=== PATIENT | female | born 1965 ===

== ENCOUNTER 2019-12-27 02:18 | Inpatient (IN) | payer OTHER ==
[2019-12-27] MEDS ORDERED: MORPHINE 4 MG/ML SYR IV PRN (02:46)
[2019-12-27 03:56] VITALS: BMI 23.8
[2019-12-27] MEDS: NS KCL 20MEQ 20 MEQ/1,000 ML BAG IV SCH ×4 (04:13→23:06)
[2019-12-27] MEDS ORDERED: PIPER/TAZO/NS 3.375gm 3.375 GM/100 ML BAG ONE (05:25)
[2019-12-27] MEDS: ONDANSETRON 4 MG/2 ML VIAL IV PRN (05:59)
[2019-12-27] MEDS: PIPER/TAZO/NS 3.375gm 3.375 GM/100 ML BAG IVPB SCH ×4 (06:04→23:06)
[2019-12-27] MEDS ORDERED: NA CHLORIDE 0.9% 1,000 ML ONE (06:09)
[2019-12-27] MEDS: FAMOTIDINE 20 MG/2 ML VIAL IV SCH (08:00)
--- NOTE | 2019-12-27 09:36 | RAD REPORT ---
EXAM DESCRIPTION: US - Abdomen Exam Limited - 12/27/2019 9:28 am CLINICAL HISTORY: Abdominal pain. COMPARISON: None. FINDINGS: The gallbladder wall is borderline thickened. . A gallstone is not seen. The biliary tree is normal caliber. IMPRESSION: Borderline thickening of the gallbladder wall. A gallstone is not visualized
[2019-12-27] MEDS: ACETAMINOPHEN 500 MG TAB PO PRN ×2 (12:39→21:05)
[2019-12-27] MEDS ORDERED: ACETAMINOPHEN 500 MG TAB ONE (12:49)
[2019-12-27 13:49] LABS: Absolute Lymphocytes (CBC) 0.8 K/uL (0.7-4.9); Basophils % 0.5 % (0-1.3); Hematocrit 31.6 % (36.0-45.0); Lymphocytes % 7.4 % (15.3-44.8); MPV 7.7 fL (7.6-11.3); RBC Red Blood Cell Count 3.43 M/uL (3.86-4.86)
--- NOTE | 2019-12-27 13:54 | P.HP ---
Date of Service: 12/27/19 PC: This patient was transferred to our facility with a presumptive diagnosis of acute cholecystitis with cholelithiasis. HPC: The she presented to a local emergency room. Patient was complaining of abdominal pain. Apparently also had some lower backache and just felt on well a few days prior. PSHx: NAD SOC: Allergic to Macrobid SYS REVIEW: No cough, no wheeze or shortness of breath. Did have some diarrhea throughout the week. Denies any urinary complaints. Has also had a headache as well. O/E awake alert vital signs are stable, T-max 103 HEENT: Not jaundice Chest: Chest movement equal bilaterally ABD: Minimal right upper quadrant tenderness LOCO: Intact DATA: Did have elevated liver enzymes and LP stays as well as gamma GT. Abdominal CT scan shows some ascitic fluid. No free air was noted. Ultrasound today shows some gallbladder wall thickening but no stones are seen. IMPRESSION: Initially this patient was thought to have acute cholecystitis with cholelithiasis. However she has some other symptoms that could be consistent with covid. Patient is on IV and pain medicine. Will give her regular diet, make her NPO at midnight, and re-evaluate in the a.m. PLAN: Transferred to the covid floor. Consult hospitalist.
[2019-12-27 14:08] LABS: ALT/SGPT 92 U/L (12-78); AST/SGOT 35 U/L (15-37); Albumin 2.6 g/dL (3.4-5.0); Alkaline Phosphatase 160 U/L (45-117); BUN Blood Urea Nitrogen 8 mg/dL (7-18); Bicarbonate 26 mmol/L (21-32); Bilirubin Total 0.5 mg/dL (0.2-1.0); Ferritin 295.5 ng/mL (8-388); Glucose Level 108 mg/dL (74-106); Potassium 3.6 mmol/L (3.5-5.1); Sodium Level 138 mmol/L (136-145)
--- NOTE | 2019-12-27 14:12 | RAD REPORT ---
EXAM DESCRIPTION: Nomi Single View12/27/2019 1:59 pm CLINICAL HISTORY: fever COMPARISON: none FINDINGS: Lung bases are mildly hazy The heart is normal size IMPRESSION: Lung bases are mildly hazy which may indicate pneumonia
[2019-12-27 14:44] LABS: Blood Morphology Comment NOT SEEN (NOT SEEN); Platelet Estimate ADEQ; Urine White Blood Cell Casts OK
[2019-12-27] MEDS ORDERED: ALBUTEROL INHALER 60 PUFF/8 GM IH PRN (14:59)
--- NOTE | 2019-12-27 15:01 | P.CNS ---
Date of Consult: 12/27/19 Reason for Consult: SOB Requesting Physician: Taj Isaac Chief Complaint: Acute cholecystitis History of Present Illness: 54-year-old female with a past medical history of smoking cigarettes x1 pack per day for greater than 30 years, depression and cardiomyopathy 13 years ago after the of her twins presented to the out test ER with complaints of abdominal pain. Described it as "pain" in the right upper quadrant. No radiation. Described the pain between a 7 and 8/10. Patient was sent to [facility] with concerns for acute cholecystitis with cholelithiasis. CT abdomen pelvis year showed some mild ascitic fluid. Ultrasound showed a gallbladder wall thickening but no stones or sludge. Patient was started on IV Zosyn. Per surgery-Dr. Javed. Initially this patient was thought to have acute cholecystitis with cholelithiasis. However she has some other symptoms that could be consistent with covid. Patient is on IV antibiotic and pain medicine. Will give her regular diet, make her NPO at midnight, and re-evaluate in the a.m. On examination patient is eating a regular diet. She is not wearing her oxygen despite having room air saturations of 86%. Patient is requiring between 2-4 L nasal cannula to maintain oxygen saturations greater than 93%. States that she just got back from the bathroom and was eating her food before putting the oxygen back on. Was just informed that the patient is call the test is negative. Allergies macrobid Allergy (Severe, Uncoded 12/27/19 03:43) Itching/Hives/Rash Home Medications: Ciprofloxacin HCl [Cipro 500 MG Tablet] 1 tab PO BID 12/27/19 Escitalopram Oxalate [Lexapro] 1 tab PO DAILY 12/27/19 Montelukast [Singulair*] 1 tab PO DAILY 12/27/19 - Past Medical/Surgical History Diabetic: No -: smoker -: cardiomyopathy 13 years ago after delivery -: depression -: allergic rhinitis -: menopausal symptom -: 2x CS -: right thumb surgery -: left eye mesh plate placement -: toe surgery on johnnie feet -: partial hysterectomy Psychosocial/ Personal History: Lives at home - Family History Sister Medical History: Cancer Notes: breast - Social History Smoking Status: Current every day smoker Alcohol use: Yes CD- Drugs: No Caffeine use: No Place of Residence: Home Review of Systems General: Other (Headache), As per HPI Eyes: Unremarkable ENT: Unremarkable Respiratory: Shortness of Breath, As per HPI Cardiovascular: Unremarkable Gastrointestinal: Abdominal Pain, No Distention Genitourinary: Unremarkable Musculoskeletal: Unremarkable Integumentary: Unremarkable Neurological: Unremarkable Lymphatics: Unremarkable Physical Examination Temp Pulse Resp BP Pulse Ox 98.8 F 96 H 20 115/62 92 12/27/19 13:39 12/27/19 11:28 12/27/19 11:28 12/27/19 11:28 12/27/19 11:28 General: Alert, In no apparent distress, Oriented x3 HEENT: Atraumatic, Normocephalic, PERRLA, Mucous membr. moist/pink Neck: Supple, No Thyromegaly, Other (Trachea midline) Respiratory: Clear to auscultation bilaterally, Diminished Cardiovascular: No edema, Normal pulses, Normal S1 S2 Capillary refill: <2 Seconds Gastrointestinal: Normal bowel sounds, Soft and benign, Non-distended, [place] (Epigastric - mild pain with palpation) Musculoskeletal: No swelling, No contractures, No erythema Integumentary: No breakdown, No significant lesion, No tenderness/swelling Neurological: Normal gait, Normal speech, Normal strength at 5/5 x4 extr, Normal tone Laboratory Data (last 24 hrs) 12/27/19 13:14: Sodium 138, Potassium 3.6, BUN 8, Creatinine 0.54 L, Glucose 108 H, Total Bilirubin 0.5, AST 35, ALT 92 H, Alkaline Phosphatase 160 H 12/27/19 13:14: WBC 10.4, Hgb 10.5 L, Hct 31.6 L, Plt Count 276 Conclusions/Impression: Impression: Acute cholecystitis with cholelithiasis: Shortness of breath: Likely undiagnosed COPD: Nicotine abuse: History of cardiomyopathy after the of twins 13 years ago: Large ovarian cyst: Plan: Acute cholecystitis with cholelithiasis: Managed by surgery. Less likely acute cholecystitis. Surgery started patient on p.o. diet, NPO after midnight and Re evaluation in the morning. Shortness of breath: Etiology unclear but likely a COPD exacerbation. Patient does have a history of cigarette smoking of 1 pack per day for greater than 30 years. This could be underlying undiagnosed COPD. Patient does not use home oxygen at this time. She does not take inhalers. Due to her history of smoking will order a CT to rule out PE. Was just informed that her COVID test was negative. Patient's CRP is elevated at 97.3. Will start patient on inhaler Dulera and albuterol, will statrt prednisone 20 mg b.i.d. and O2 support. Currently she is 86% on room air and was having a difficult time maintaining oxy gen saturations above 93% at 4 L nasal cannula. Patient states she was doing fine yesterday. States that at rest she does okay with exertion she feels like she can't catch her breath. Due to the possibility of surgery tomorrow will hold off on anticoagulation until we get results of CT and a D-dimer. Will also screen for flu, strep due to fever. Likely undiagnosed COPD: Will further evaluate as above. Will continue O2 support and breathing treatments as needed. Nicotine abuse: 1 pack-a-day smoker of cigarettes for greater than 30 years. Offered nicotine patch but refused. Will offer again tomorrow History of cardiomyopathy after the of twins 13 years ago: Will further workup patient with an echocardiogram due to her history of cardiomyopathy 13 years ago after the of her twins and possibly undiagnosed COPD from many years of smoking. Will also start on prednisone 20 mg b.i.d., Dulera and albuterol inhalers for possible underlying COPD. Prior to arriving to the hospital patient had an EKG which showed normal sinus rhythm at a rate of 65. No acute pathology. Large ovarian cyst: CT showed an incidental finding of a large ovarian cyst approximately 7.7 cm large. Patient will need follow-up with sausage smoker for further workup after discharge. Time Spent Managing Pts care (In Minutes): 55
[2019-12-27 15:30] LABS: Urine Appearance CLOUDY; Urine Bilirubin NEGATIVE (NEG); Urine Blood TRACE (NEG); Urine Color YELLOW; Urine Glucose NEGATIVE (NEG); Urine Protein NEGATIVE (NEG); Urine Specific Gravity 1.015 (1.005-1.030); Urine Urobilinogen 0.2 mg/dL (0.2-1.0); Urine pH 5.5 (5.0-7.0)
[2019-12-27 15:37] LABS: Urine Microscopic Reflex ORDER UMIC
[2019-12-27 15:38] LABS: Urine Bacteria 20-50 /HPF (<20); Urine Culture Reflex Order NOT NEEDED; Urine RBC <5 /HPF (NONE SEEN)
[2019-12-27] MEDS ORDERED: IPRATROPIUM BROM 0.5MG/2.5ML NEB SCH (16:00)
[2019-12-27] MEDS: ENOXAPARIN 60 MG/0.6 ML SQ SCH (18:24)
[2019-12-27] MEDS: DULERA 100/5 (MOMETASONE/FORMOTEROL) INHALER IH SCH (21:03)
[2019-12-27] MEDS: predniSONE 20 MG TAB PO SCH (21:05)
[2019-12-28] MEDS: ACETAMINOPHEN 500 MG TAB PO PRN ×4 (03:46→19:54)
[2019-12-28] MEDS: PIPER/TAZO/NS 3.375gm 3.375 GM/100 ML BAG IVPB SCH ×2 (05:28→11:09)
[2019-12-28] MEDS: FAMOTIDINE 20 MG/2 ML VIAL IV SCH (08:13)
[2019-12-28] MEDS: predniSONE 20 MG TAB PO SCH ×2 (08:13→19:54)
[2019-12-28] MEDS: ENOXAPARIN 60 MG/0.6 ML SQ SCH ×2 (08:13→19:53)
[2019-12-28] MEDS: DULERA 100/5 (MOMETASONE/FORMOTEROL) INHALER IH SCH ×2 (08:23→19:54)
--- NOTE | 2019-12-28 09:15 | P.PN ---
Subjective Date of Service: 12/28/19 Chief Complaint: Acute cholecystitis Subjective: No new changes Review of Systems 10-point ROS is otherwise unremarkable General: Fever, Chills Gastrointestinal: Abdominal Pain Neurological: Other (Headache) Physical Examination - Vital Signs Temperature: 97.2 F Blood Pressure: 110/64 Pulse: 60 Respirations: 21 Pulse Ox (%): 94 - Physical Exam General: Alert, In no apparent distress, Oriented x3 HEENT: Atraumatic, Normocephalic Neck: Supple Respiratory: Clear to auscultation bilaterally, Normal air movement Cardiovascular: No edema, Regular rate/rhythm, Normal S1 S2 Gastrointestinal: Tenderness (Right upper quadrant and epigastric tenderness without guarding or rebound tenderness.) Musculoskeletal: No erythema, No tenderness, No warmth Integumentary: No significant lesion, No tenderness/swelling, No erythema Neurological: Normal speech, Normal tone, Sensation intact - Studies Laboratory Data (last 24 hrs) 12/27/19 13:14: Sodium 138, Potassium 3.6, BUN 8, Creatinine 0.54 L, Glucose 108 H, Total Bilirubin 0.5, AST 35, ALT 92 H, Alkaline Phosphatase 160 H 12/27/19 13:14: WBC 10.4, Hgb 10.5 L, Hct 31.6 L, Plt Count 276 Microbiology Data (last 24 hrs): 12/27/19 15:45 Throat Group A Streptococcus Rapid Screen - Final 12/27/19 12:30 Nasopharnyx Influenza Type A Antigen Screen - Final 12/27/19 12:30 Nasopharnyx Influenza Type B Antigen Screen - Final 12/27/19 04:30 Nasopharnyx Coronavirus COVID-19 PCR - Final Assessment & Plan Discharge Plan: Home Plan to discharge in: 24 Hours - Code Status/Comfort Care Code Status Assessed: Yes Physician Review Additional Text: Impression: Acute cholecystitis with cholelithiasis: Shortness of breath: Likely undiagnosed COPD: Nicotine abuse: History of cardiomyopathy after the of twins 13 years ago: Large ovarian cyst: Plan: Acute cholecystitis: Managed by surgery. Less likely acute cholecystitis. Patient remained NPO last night. Awaiting re-evaluation from surgery today. Patient still with mild right upper quadrant and epigastric tenderness. Shortness of breath: Etiology unclear but likely a COPD exacerbation. Patient does have a history of cigarette smoking of 1 pack per day for greater than 30 years. This could be underlying undiagnosed COPD. Patient does not use home oxygen at this time. She does not take inhalers. CT PE protocol was obtained and negative for pulmonary embolism. Patient had repeat COVID test and is currently awaiting results.Will start patient on inhaler Dulera and albuterol, will statrt prednisone 20 mg b.i.d. and O2 support. Saturations have improved today. Will continue to monitor closely. Patient states she was doing fine yesterday. States that at rest she does okay with exertion she feels like she can't catch her breath. Will continue to hold anticoagulation at this time until cleared by surgery. Likely undiagnosed COPD: Will further evaluate as above. Will continue O2 support and breathing treatments as needed. Nicotine abuse: 1 pack-a-day smoker of cigarettes for greater than 30 years. Offered nicotine patch but refused. Will offer again tomorrow History of cardiomyopathy after the of twins 13 years ago: Will further workup patient with an echocardiogram due to her history of cardiomyopathy 13 years ago after the of her twins and possibly undiagnosed COPD from many years of smoking. Will also start on prednisone 20 mg b.i.d., Dulera and albuterol inhalers for possible underlying COPD. Prior to arriving to the hospital patient had an EKG which showed normal sinus rhythm at a rate of 65. No acute pathology. Patient went to follow up with Cardiology. Large ovarian cyst: CT showed an incidental finding of a large ovarian cyst approximately 7.7 cm large. Patient will need follow-up with parking analyst for further workup after discharge. Critical Care: No Time Spent Managing Pts Care (In Minutes): 55
--- NOTE | 2019-12-28 10:19 | RAD REPORT ---
EXAM DESCRIPTION: CT - Head Brain Wo Cont - 12/28/2019 9:33 am CLINICAL HISTORY: headache COMPARISON: Chest Single View dated 12/27/2019 TECHNIQUE: Axial 5 mm thick images of the head were obtained without IV contrast. All CT scans are performed using dose optimization technique as appropriate and may include automated exposure control or mA/KV adjustment according to patient size. FINDINGS: No intracranial hemorrhage, mass, edema or shift of mid-line structures. No acute infarcti on changes seen. No abnormal extra-axial fluid collections. Ventricles are normal. Mastoid air cells and visualized portions of the paranasal sinuses are clear. No acute bony findings. Postsurgical changes are noted to the floor of the left orbit. No acute globe or orbital content abnormality. IMPRESSION: Negative noncontrast CT examination for acute or significant finding. No focal neurologic deficit was detailed. If there are ongoing clinical concerns, follow-up MR imagin g could be performed.
--- NOTE | 2019-12-28 10:23 | RAD REPORT ---
EXAM DESCRIPTION: CT - Chest For Pe Angio - 12/28/2019 3:30 am CLINICAL HISTORY: The patient is 54 years old and is Female; Acute onset shortness of breath TECHNIQUE: Axial computed tomographic angiography images of the chest with intravenous contrast. S agittal and coronal reformatted images were created and reviewed. This CT exam was performed using one or more of the following dose reduction techniques: automated exposure control, adjustment of t he mA and/or kV according to patient size, and/or use of iterative reconstruction technique. MIP reconstructed images were created and reviewed. COMPARISON: No relevant prior studies available. FINDINGS: PULMONARY ARTERIES: There are no obvious filling defects identified within the pulmonary arteries to suggest pulmonary embolism. AORTA: No acute findings. No thoracic aortic aneurysm. LUNGS: The lungs are hyperinflated with bilateral centrilobular emphysematous change. Dependent atelectasis within the lung bases is noted, right greater than left. No mass. PLEURAL SPACE: Small bilateral pleural effusions are present. No pneumothorax. HEART: A trace pericardial effusion is present. No evidence of RV dysfunction. BONES/JOINTS: No acute fracture. No dislocation. SOFT TISSUES: Unremarkable. LYMPH NODES: Unremarkable. No enlarged lymph nodes. IMPRESSION: 1. No evidence of pulmonary embolism. 2. Bilateral pleural effusions with compressive atelectasis, right greater than left. 3. Emphysematous changes of the lungs. Electronically signed by: Debora Lr MD 12/28/2019 1:42 AM CDT Due to temporary technical issues with the PACS/Fluency reporting system, reports are being signed by the in house radiologist without review as a courtesy to ensure prompt reporting. The interpreting r adiologist is fully responsible for the content of the report.
[2019-12-28 10:50] LABS: Absolute Lymphocytes (CBC) 0.7 K/uL (0.7-4.9); Basophils % 0.3 % (0-1.3); Hematocrit 32.1 % (36.0-45.0); MPV 7.7 fL (7.6-11.3); RBC Red Blood Cell Count 3.51 M/uL (3.86-4.86)
[2019-12-28 10:57] LABS: ALT/SGPT 96 U/L (12-78); AST/SGOT 36 U/L (15-37); Albumin 2.8 g/dL (3.4-5.0); Alkaline Phosphatase 160 U/L (45-117); BUN Blood Urea Nitrogen 8 mg/dL (7-18); Bicarbonate 27 mmol/L (21-32); Bilirubin Total 0.3 mg/dL (0.2-1.0); Glucose Level 137 mg/dL (74-106); Potassium 3.8 mmol/L (3.5-5.1); Protein, Total 6.6 g/dL (6.4-8.2); Sodium Level 142 mmol/L (136-145)
[2019-12-28] MEDS: NS KCL 20MEQ 20 MEQ/1,000 ML BAG IV SCH ×2 (11:09→19:54)
--- NOTE | 2019-12-28 14:33 | P.PN ---
Date of Service: 12/28/19 S: Patient feels slightly better today. Still has headache. Complains of some upper abdominal discomfort. Still has feelings of shortness of breath. Also says her abdomen appears to be getting bigger, and slightly more distended. O: Vital signs are stable, abdomen is soft, mild upper abdominal tenderness. Mildly tympanic. No guarding or rebound. A: Patient complaining of any headaches. (CT scan was negative) still has mild shortness of breath. Abdomen remains nonsurgical. P: Patient is not going to require surgical intervention on this hospital stay. She may have a full diet. Apparently is waiting for AE echocardiogram. Will will discuss the results with patient in a.m. patient may be placed on blood thinners if indicated.
[2019-12-28] MEDS ORDERED: MORPHINE 2 MG/ML SYR IV PRN (14:47)
[2019-12-28] MEDS ORDERED: MINERAL OIL 30 ML UCUP PO ONE (15:00)
[2019-12-28] MEDS ORDERED: HYDROCODONE/APAP 5/325 MG TAB PO PRN (15:06)
--- NOTE | 2019-12-28 16:40 | P.CNS ---
Date of Consult: 12/28/19 Reason for Consult: possible COVID infection Chief Complaint: FEver and headache History of Present Illness: Patient is 54 years of age has been sick for about 2 weeks complaining of a headache some back pain nonspecific symptoms having a running some fever went to the urgent care was found to be negative was transferred here possibility of for cholecystitis she is currently doing well no abdominal pain her pain has was all denies any shortness of breath Allergies macrobid Allergy (Severe, Uncoded 12/27/19 03:43) Itching/Hives/Rash Home Medications: Ciprofloxacin HCl [Cipro 500 MG Tablet] 1 tab PO BID 12/27/19 Escitalopram Oxalate [Lexapro] 1 tab PO DAILY 12/27/19 Montelukast [Singulair*] 1 tab PO DAILY 12/27/19 - Past Medical/Surgical History Diabetic: No -: smoker -: cardiomyopathy 13 years ago after delivery -: depression -: allergic rhinitis -: menopausal symptom -: 2x CS -: right thumb surgery -: left eye mesh plate placement -: toe surgery on johnnie feet -: partial hysterectomy Psychosocial/ Personal History: Lives at home - Family History Sister Medical History: Cancer Notes: breast - Social History Smoking Status: Current every day smoker Alcohol use: Yes CD- Drugs: No Caffeine use: No Place of Residence: Home Review of Systems 10-point ROS is otherwise unremarkable Physical Examination Temp Pulse Resp BP Pulse Ox 97 F 64 19 114/66 95 12/28/19 12:00 12/28/19 12:00 12/28/19 12:00 12/28/19 12:00 12/28/19 12:00 Laboratory Data (last 24 hrs) 12/28/19 10:28: Sodium 142, Potassium 3.8, BUN 8, Creatinine 0.43 L, Glucose 137 H, Total Bilirubin 0.3, AST 36, ALT 96 H, Alkaline Phosphatase 160 H 12/28/19 10:28: WBC 6.2 D, Hgb 10.9 L, Hct 32.1 L, Plt Count 325 - Problems (1) COVID-19 ruled out by clinical criteria Current Visit: Yes Status: Acute Plan: Patient is 54 years of age admitted with nonspecific symptoms of headaches and fever for the past couple of weeks phillips virus test is negative although D- dimer and CRP were elevated CT scan of the chest minimal changes does no evidence of interstitial pneumonia urinalysis also negative cultures are also negative seen by general surgery doubt cholecystitis patient does have COPD changes she is an active smoker although she denies any shortness of breath saturations vital signs satisfactory I recommend discharging her on some low- dose prednisone 10 mg twice a day for 7 days and to follow up with me for evaluation for COPD discuss with Dr. Isaac patient denies any symptoms of congestive heart failure
[2019-12-28] MEDS: CEFTRIAXONE/SWI 1gm 1 GM/10 ML SYR IVP SCH (16:59)
[2019-12-28] MEDS: NYSTATIN 500,000 UNIT/5 ML UDC PO SCH ×2 (16:59→19:55)
[2019-12-28] MEDS ORDERED: PIPER/TAZO/NS 3.375gm 3.375 GM/100 ML BAG IVPB SCH (17:00)
[2019-12-29] MEDS: ACETAMINOPHEN 500 MG TAB PO PRN ×3 (02:30→16:24)
[2019-12-29] MEDS ORDERED: MELATONIN 5 MG TABLET PO ONE (02:32)
[2019-12-29] MEDS: ONDANSETRON 4 MG/2 ML VIAL IV PRN (05:16)
[2019-12-29] MEDS: NS KCL 20MEQ 20 MEQ/1,000 ML BAG IV SCH ×2 (05:18→15:00)
[2019-12-29 06:36] LABS: Basophils % 0.2 % (0-1.3); Hematocrit 28.6 % (36.0-45.0); Lymphocytes % 11.7 % (15.3-44.8); RBC Red Blood Cell Count 3.12 M/uL (3.86-4.86)
[2019-12-29 06:54] LABS: ALT/SGPT 78 U/L (12-78); AST/SGOT 26 U/L (15-37); Albumin 2.4 g/dL (3.4-5.0); Alkaline Phosphatase 131 U/L (45-117); BUN Blood Urea Nitrogen 10 mg/dL (7-18); Bicarbonate 26 mmol/L (21-32); Bilirubin Total 0.2 mg/dL (0.2-1.0); Glucose Level 148 mg/dL (74-106); Potassium 4.6 mmol/L (3.5-5.1); Sodium Level 142 mmol/L (136-145)
[2019-12-29] MEDS: DULERA 100/5 (MOMETASONE/FORMOTEROL) INHALER IH SCH (09:00)
[2019-12-29] MEDS: CEFTRIAXONE/SWI 1gm 1 GM/10 ML SYR IVP SCH (09:17)
[2019-12-29] MEDS: ENOXAPARIN 60 MG/0.6 ML SQ SCH (09:17)
[2019-12-29] MEDS: FAMOTIDINE 20 MG/2 ML VIAL IV SCH (09:17)
[2019-12-29] MEDS: NYSTATIN 500,000 UNIT/5 ML UDC PO SCH ×2 (09:17→15:08)
[2019-12-29] MEDS: predniSONE 20 MG TAB PO SCH (09:18)
--- NOTE | 2019-12-29 10:57 | P.DS ---
Admission Date: 12/27/19 Discharge Date: 12/29/19 Disposition: ROUTINE DISCHARGE Discharge Condition: FAIR Reason for Admission: Suspected cholecystitis, COPD Consultations: General surgery Dr. Isaac Pulmonology: Dr. Nickerson Procedures: CT PE protocol FINDINGS: PULMONARY ARTERIES: There are no obvious filling defects identified within the pulmonary arteries to suggest pulmonary embolism. AORTA: No acute findings. No thoracic aortic aneurysm. LUNGS: The lungs are hyperinflated with bilateral centrilobular emphysematous change. Dependent atelectasis within the lung bases is noted, right greater than left. No mass. PLEURAL SPACE: Small bilateral pleural effusions are present. No pneumothorax. HEART: A trace pericardial effusion is present. No evidence of RV dysfunction. BONES/JOINTS: No acute fracture. No dislocation. SOFT TISSUES: Unremarkable. LYMPH NODES: Unremarkable. No enlarged lymph nodes. IMPRESSION: 1. No evidence of pulmonary embolism. 2. Bilateral pleural effusions with compressive atelectasis, right greater than left. 3. Emphysematous changes of the lungs. Electronically signed by: Debora Lr MD 12/28/2019 1:42 AM CDT Chest x-ray FINDINGS: Lung bases are mildly hazy The heart is normal size IMPRESSION: Lung bases are mildly hazy which may indicate pneumonia CT head without contrast FINDINGS: No intracranial hemorrhage, mass, edema or shift of mid-line structures. No acute infarction changes seen. No abnormal extra-axial fluid collections. Ventricles are normal. Mastoid air cells and visualized portions of the paranasal sinuses are clear. No acute bony findings. Postsurgical changes are noted to the floor of the left orbit. No acute globe or orbital content abnormality. IMPRESSION: Negative noncontrast CT examination for acute or significant finding. No focal neurologic deficit was detailed. If there are ongoing clinical concerns, follow-up MR imaging could be performed. Ultrasound abdomen FINDINGS: The gallbladder wall is borderline thickened. . A gallstone is not seen. The biliary tree is normal caliber. IMPRESSION: Borderline thickening of the gallbladder wall. A gallstone is not visualized Medical problem list cholecystitis with without cholelithiasis- nonsurgical Shortness of breath secondary to COPD Nicotine abuse History of cardiomyopathy after the of twins 13 years ago: Large ovarian cyst Brief History of Present Illness: Patient was seen as dental emergency department and diagnosed with suspected cholecystitis. Patient was transferred to our facility for evaluation by general surgery. Hospital Course: 54-year-old female with medical history of primarily tobacco abuse 1 pack per day for the last 30 years was admitted for suspected cholecystitis. Patient was having right upper quadrant abdominal pain with some mild tenderness and had an ultrasound that showed some wall thickening without any gallstones present. Patient was evaluated by general surgery who believed that this did not require immediate surgical intervention and this can be followed up on outpatient basis. During her stay, patient was noted to be slightly hypoxic and was also worked up for this. Patient saw pulmonology while she is in the hospital and had both chest x-ray and CT PE protocol to rule out pulmonary embolism. Pulmonology believes the patient has underlying COPD which she has not been being treated for. Pulmonology recommended discharge patient continue with prednisone 10 mg p.o. b.i.d. for 10 days in addition to Advair inhaler. Patient was 88% on room air today but not dyspneic or tachypneic at all. Pulmonology recommends qualifying patient for home oxygen therapy and close followup with pulmonology. Patient had suspected urinary tract infection but culture came back negative, patient did receive IV antibiotics during her stay will not be discharged with any antibiotics this time. Patient will also need to follow up with general surgery in the next 1-2 weeks to follow up this hospitalization. Strict return precautions given for worsening abdominal pain, fevers, increasing shortness of breath. Patient had initial COVID test which was negative that is had a repeat test collected the next day due to increasing and fever and shortness of breath. This test is still pending. For the meantime patient will be required to self quarantine until the results of these tests are available. Vital Signs/Physical Exam: Temp Pulse Resp BP Pulse Ox 98.9 F 52 20 120/59 L 93 12/29/19 08:00 12/29/19 08:00 12/29/19 08:00 12/29/19 08:12/29/19 08:00 General: Alert, In no apparent distress HEENT: Atraumatic, PERRLA, EOMI Neck: Supple, JVD not distended Respiratory: Clear to auscultation bilaterally, Normal air movement Cardiovascular: Regular rate/rhythm, Normal S1 S2 Gastrointestinal: Normal bowel sounds, No tenderness Musculoskeletal: No tenderness Integumentary: No rashes Neurological: Normal speech, Normal tone, Normal affect Lymphatics: No axilla or inguinal lymphadenopathy Laboratory Data at Discharge: WBC 8.5 K/uL (4.3-10.9) D 12/29/19 06:14 Hgb 9.8 g/dL (12.0-15.0) L 12/29/19 06:14 Hct 28.6 % (36.0-45.0) L 12/29/19 06:14 Plt Count 348 K/uL (152-406) 12/29/19 06:14 Sodium 142 mmol/L (136-145) 12/29/19 06:14 Potassium 4.6 mmol/L (3.5-5.1) 12/29/19 06:14 BUN 10 mg/dL (7-18) 12/29/19 06:14 Creatinine 0.39 mg/dL (0.55-1.3) L 12/29/19 06:14 Glucose 148 mg/dL (74-106) H 12/29/19 06:14 Total Bilirubin 0.2 mg/dL (0.2-1.0) 12/29/19 06:14 AST 26 U/L (15-37) 12/29/19 06:14 ALT 78 U/L (12-78) 12/29/19 06:14 Alkaline Phosphatase 131 U/L (45-117) H 12/29/19 06:14 Home Medications: Ciprofloxacin HCl [Cipro 500 MG Tablet] 1 tab PO BID 12/27/19 Escitalopram Oxalate [Lexapro] 1 tab PO DAILY 12/27/19 Montelukast [Singulair*] 1 tab PO DAILY 12/27/19 predniSONE [Deltasone*] 10 mg PO BID #14 tab 12/28/19 Fluticasone/Salmeterol [Advair Hfa 115-21 Mcg Inhaler] 12 gm IH BID #1 hfa.aer.ad 12/29/19 New Medications: Fluticasone/Salmeterol [Advair Hfa 115-21 Mcg Inhaler] 12 gm IH BID #1 hfa.aer.ad predniSONE [Deltasone*] 10 mg PO BID #14 tab Patient Discharge Instructions: Please give the patient the Dulera from the hospital to take 1 or 2 puffs once a twice a day. 1. You will need to follow up with general surgery in 1-2 weeks to follow up this hospitalization. If your abdominal pain becomes significantly worse please return for re-evaluation. 2. You need to follow up with pulmonology on an outpatient basis for evaluation of oxygen needs. 3. 54-year-old female with medical history of primarily tobacco abuse 1 pack per day for the last 30 years was admitted for suspected cholecystitis. Patient was having right upper quadrant abdominal pain with some mild tenderness and had an ultrasound that showed some wall thickening without any gallstones present. Patient was evaluated by general surgery who believed that this did not require immediate surgical intervention and this can be followed up on outpatient basis. During her stay, patient was noted to be slig htly hypoxic and was also worked up for this. Patient saw pulmonology while she is in the hospital and had both chest x-ray and CT PE protocol to rule out pulmonary embolism. Pulmonology believes the patient has underlying COPD which she has not been being treated for. Pulmonology recommended discharge patient continue with prednisone 10 mg p.o. b.i.d. for 10 days in addition to Advair inhaler. Patient was 88% on room air today but not dyspneic or tachypneic at all. Pulmonology recommends qualifying patient for home oxygen therapy and close followup with pulmonology. Patient had suspected urinary tract infection but culture came back negative, patient did receive IV antibiotics during her stay will not be discharged with any antibiotics this time. Patient will also need to follow up with general surgery in the next 1-2 weeks to follow up this hospitalization. Strict return precautions given for worsening abdominal pain, fevers, increasing shortness of breath. Patient had initial COVID test which was negative that is had a repeat test collected the next day due to increasing and fever and shortness of breath. This test is still pending. For the meantime patient will be required to self quarantine until the results of these tests are available. Diet: Regular Activity: Ad guille Followup: Eliseo Nickerson MD [ACTIVE - CAN ADMIT] - Taj Isaac MD [ACTIVE - CAN ADMIT] - Time spent managing pt's care (in minutes): 55
[2019-12-29 13:06] VITALS: O2SAT 97
[2019-12-29 18:06] VITALS: BP 128/66; TEMP 97.4
== END 2019-12-29 17:55 | disposition home or self-care (01) | DRG 445 ==
LOC: 2ND 02:18 → EDBD 02:18 → 4TH 06:29 → 2ND 15:17
PROVIDERS: ADMIT Surgery; ATTEND Surgery
DX: K80.00 Calculus of gallbladder with acute cholecystitis without obstruction (principal); J44.1 Chronic obstructive pulmonary disease with (acute) exacerbation; F17.210 Nicotine dependence, cigarettes, uncomplicated; N83.209 Unspecified ovarian cyst, unspecified side; Z88.1 Allergy status to other antibiotic agents; Z79.899 Other long term (current) drug therapy; Z90.711 Acquired absence of uterus with remaining cervical stump; Z20.828 Contact with and (suspected) exposure to other viral communicable diseases; R06.02 Shortness of breath; R50.9 Fever, unspecified
CPT/HCPCS: 36415; 70450; 71045; 71275; 76705; 80053; 81003; 81015; 82728; 84145; 85025; 85379; 85652; 86140; 87040; 87070; 87081; 87086; 87088; 87804; J0696; J1650; J2270; J2405; J2543; J7030; J7512; J7606; Q9967; U0002